=== PATIENT | male | born 2000 | race Hispanic/Latino ===

== ENCOUNTER 2023-02-10 16:39 | Emergency (ER) | payer SELFPAY ==
[2023-02-10 17:26] VITALS: BP 123/79; PULSE 70; RESP 15; TEMP 36.6; O2SAT 100
--- NOTE | 2023-02-10 20:02 | ED.GENADULT ---
HPI - General Adult General Chief complaint: Dental/Oral Stated complaint: tooth pain Time Seen by Provider: 02/10/23 19:36 History of Present Illness HPI narrative: 22-year-old male presented the emergency department for evaluation of worsening left molar pain. Patient states the pain started approximately 3 days ago. Patient attempted to have outpatient follow-up with a dentist today but the clinic was closed. Patient states he will try again tomorrow. Patient denies any difficulty swallowing. Patient has been taking ibuprofen for pain control Related Data Allergies Allergy/AdvReac Type Severity Reaction Status Date / Time No Known Allergies Allergy Verified 02/10/23 20:43 Review of Systems Review of Systems: All systems reviewed & are unremarkable except as noted in HPI and below Exam Narrative: APPEARANCE: Well appearing, no pain, no distress, well-nourished. HEAD: normocephalic, atraumatic. Dental carry on the posterior left molar with no drainable abscess EYES: PERRLA/EOMI, conjunctivae clear. NOSE: Normal no drainage EARS:TMS clear with good light reflex. THROAT: Pharynx clear, no exudate. NECK: Supple. No adenopathy, no masses. RESPIRATORY: Airway patent, respirations nonlabored. Clear to auscultation bilaterally, no rales, rhonchi, wheezing. CARDIOVASCULAR: Regular rate and rhythm without murmurs rubs or gallops. ABDOMINAL: Soft, nontender, nondistended, normal bowel sounds MUSCULOSKELETAL: Moves all extremities. Strength/ROM intact, No edema, No calf tenderness. NEURO: Alert. Cranial nerves II through XII intact. Grossly intact SKIN: Warm, dry. Normal Color Course Course Emergency Course: 20-year-old male with dental infection on posterior left molar. Patient was started on Augmentin in the emergency department. Patient was provided ibuprofen for pain control. Patient will be discharged home with Colora for additional pain control. Vital Signs Vital signs: Vital Signs Temperature 97.8 F 02/10/23 17:26 Pulse Rate 70 02/10/23 17:26 Respiratory Rate 02/10/23 17:26 Blood Pressure 123/79 02/10/23 17:26 Pulse Oximetry 100 02/10/23 17:26 Temperature 97.8 F 02/10/23 17:26 Pulse Rate 70 02/10/23 17:26 Respiratory Rate 02/10/23 17:26 Blood Pressure 123/79 02/10/23 17:26 Pulse Oximetry 100 02/10/23 17:26 Medical Decision Making Vital Signs Vital Signs: Vital Signs Temperature 97.8 F 02/10/23 17:26 Pulse Rate 70 02/10/23 17:26 Respiratory Rate 02/10/23 17:26 Blood Pressure 123/79 02/10/23 17:26 Pulse Oximetry 100 02/10/23 17:26 Temperature 97.8 F 02/10/23 17:26 Pulse Rate 70 02/10/23 17:26 Respiratory Rate 02/10/23 17:26 Blood Pressure 123/79 02/10/23 17:26 Pulse Oximetry 100 02/10/23 17:26 Discharge Plan Discharge Clinical Impression: Toothache Patient Disposition: Home, Self-Care Condition: Stable Instructions: Antibiotic Form, Toothache (ED) Additional Instructions: Ibuprofen for pain control. Antibiotic as directed until completed. Colora as needed for additional pain control. Have close follow-up with your dentist. Prescriptions: New amoxicillin-pot clavulanate 875-125 mg tablet 1 tablet PO Q12H 7 Days Qty: 14 0RF hydrocodone-acetaminophen 5-325 mg tablet 1 tablet PO Q12H PRN (Reason: pain) Qty: 10 0RF Follow-up/Referrals: PHYSICIAN NOT ON STAFF,NONSTAFF [Primary Care Provider] -
[2023-02-10] MEDS: IBUPROFEN 600 MG TABLET PO (20:44)
[2023-02-10] MEDS: AMOXICILLIN/CLAVULANATE K 875-125 MG TAB 1 TABLET PO (20:44)
== END 2023-02-10 20:45 | disposition home or self-care (01) ==
PROVIDERS: Emergency Provider Emergency Medicine
DX: K08.89 Other specified disorders of teeth and supporting structures (principal)
CPT/HCPCS: 99283; A4565; A9270

== ENCOUNTER 2025-07-16 17:04 | Emergency (ER) | payer SELFPAY ==
--- NOTE | ~2025-07-16 | XR_ITS ---
EXAMINATION: XR chest 1V portable DATE: 07/16/2025 18:10 INDICATION: Chest discomfort TECHNIQUE: AP view of the chest was obtained. COMPARISON: None FINDINGS: The lungs are clear with no focal airspace opacities, pulmonary edema, pleural effusion or pneumothorax. The cardiomediastinal silhouette is normal. Visualized bones and soft tissues are unremarkable. IMPRESSION: 1. No acute cardiopulmonary disease. Reviewed, dictated and finalized at location A. [facility]
[2025-07-16 17:12] VITALS: BP 151/89; PULSE 118; RESP 20; TEMP 36.8; O2SAT 98
--- NOTE | 2025-07-16 17:30 | ECG_ITS ---
Test Date: 2025-07-16 17:38:29 Measurements Intervals Dora Rate: 114 P: 60 AR: 108 QRS: 50 QRSD: 82 T: 49 QT: 305 QTc: 420 Interpretive Statements SINUS TACHYCARDIA WITH SHORT AR INTERVAL ST ELEVATION IN DIFFUSE LEADS- PROBABLY EARLY REPOLARIZATION ABNORMAL ECG No previous ECG available for comparison Electronically Signed On 07-16-2025 18:44:27 [employer] by Humberto Gibson D.O.
--- NOTE | 2025-07-16 17:47 | ED_ITS ---
HPI - General Adult General Chief complaint: Unspecified Stated complaint: abd cramping Time Seen by Provider: 07/16/25 17:47 History of Present Illness HPI narrative: For the past year, patient has had episodes where he feels like his heart is racing, he gets lightheaded or feels like his hands/face cramp/go numb. He feels anxious often especially if he doesn't drink alcohol; will then drink 2-3 beers and feel better. Daily drinker, 5-6 drinks. Related Data Allergies Allergy/AdvReac Type Severity Reaction Status Date / Time No Known Allergies Allergy Verified 07/16/25 17:20 Review of Systems Review of Systems: All systems reviewed & are unremarkable except as noted in HPI and below Exam Narrative: EXAMINATION OF ORGAN SYSTEMS/BODY AREAS: Constitutional: Vital signs per nursing GENERAL: Slightly anxious appearing with smell of alcohol HEAD: Normal with no signs of head trauma. EYES: EOMI, conjunctiva normal ENT: Hearing grossly intact LUNGS: Nonlabored breathing. HEART: Tachycardic ABD: Soft, nontender to palpation EXT: Normal range of motion SKIN: No rashes or lesions. NEURO: Alert. No gross focal sensory or strength deficits. Speaking with clear speech. 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 On exam he does appear very anxious, I suspect likely panic attacks, and likely some degree of alcohol withdrawal, which I discussed with patient.. I did have long discussion with the patient and his partner at bedside, that if he continues to drink heavily he may develop with liver failure and severe consequences to his health, that I plan on getting some labs and ordering some medications to help him feel better. I asked if he had any further questions and he said no, he did agree to stay for labs and for medications and fluids. I have been told that the patient has eloped. Differential Diagnosis Differential Diagnosis: Anxiety attack, alcohol withdrawal, etc. Discharge Plan Discharge Clinical Impression: Anxiety attack, Alcohol use disorder Patient Disposition: Elopement After Seen by Prov Patient Language: Scottish Prescriptions: No Action amoxicillin-pot clavulanate 875-125 mg tablet 1 tablet PO Q12H 7 Days Qty: 14 0RF hydrocodone-acetaminophen 5-325 mg tablet 1 tablet PO Q12H PRN (Reason: pain) Qty: 10 0RF Follow-up/Referrals: PHYSICIAN NOT ON STAFF,NONSTAFF [Primary Care Provider]
--- NOTE | 2025-07-16 18:20 | PC.NURSE ---
PT WAS SEEN WALKING OUT OF THE DEPARTMENT BY DIRECTOR OF RESPIRATORY THERAPY. DR ALARCON MADE AWARE.
--- NOTE | 2025-07-16 18:21 | PC.NURSE ---
Pt seen exiting ER with visitor. Pt stopped and said, bye to this RN in intake. Pt exited ER with a steady gait.
== END 2025-07-16 18:17 | disposition left against medical advice (07) ==
LOC: ANHED 18:25
PROVIDERS: Emergency Provider Emergency Medicine
DX: F41.9 Anxiety disorder, unspecified (principal); F10.90 Alcohol use, unspecified, uncomplicated; R00.0 Tachycardia, unspecified
CPT/HCPCS: 71045; 93005; 99283